=== PATIENT | male | born 1950 | race Caucasian/White ===

== ENCOUNTER 2019-02-01 07:26 | Inpatient (IN) | payer OTHER ==
[2019-01-28 13:16] LABS: HEMATOCRIT 45.8 % (42.0-52.0); HEMOGLOBIN 15.1 gm/dL (14.0-18.0); MCH 30.4 pg (26.0-34.0); MCHC 32.9 g/dL (28.0-37.0); MCV 92.4 fL (80.0-100.0); RBC 4.96 mil/uL (4.50-6.00); RDW 14.9 % (10.5-14.5); WBC 11.5 thou/uL (4.0-11.0)
[2019-01-28 13:28] LABS: ALBUMIN 3.6 g/dL (3.4-5.0); CREATININE 0.9 mg/dL (0.7-1.3); POTASSIUM 4.1 mmol/L (3.5-5.1); PROTIME 9.9 Seconds (9.3-11.4)
[2019-01-28 14:22] LABS: URINE BILIRUBIN NEGATIVE (Negative); URINE BLOOD NEGATIVE (Negative); URINE CLARITY CLEAR; URINE COLOR YELLOW; URINE GLUCOSE-RANDOM* NEGATIVE (Negative); URINE KETONES NEGATIVE (Negative); URINE LEUKOCYTES-REFLEX NEGATIVE (Negative); URINE NITRITE-REFLEX NEGATIVE (Negative); URINE PROTEIN (DIPSTICK) NEGATIVE (Negative); URINE UROBILINOGEN 0.2 E.U./dl (0.2-1.0)
--- NOTE | 2019-01-29 07:53 | EKG ---
[address] [place] [address] ELECTROCARDIOGRAM REPORT Name: MELISSATRESSA Armendariz Room #: [facility]#: [id number] Admission: Attend Phys: Efra Godfrey MD Discharge: Date of : 50 Report #: [id number] THIS REPORT FOR: //name// [facility] Test Date: 2019-01-28 Test Time: 13:09:13 Pat Name: TRESSA TORRES Department: Room: Gender: Web Knitter: Marcello PIERCE : 1950 Requested By: Efra Godfrey Order Number: [id number] MD: Jorge Riggs Measurements Intervals Edwards Rate: 85 P: 58 UT: 151 QRS: 38 QRSD: 147 T: 16 QT: 382 QTc: 455 Interpretive Statements Sinus rhythm Right bundle branch block No previous ECG available for comparison Electronically Signed On 01-29-2019 7:53:16 PRE SALES ARCHITECT by Jorge Riggs [email or web address] <ELECTRONICALLY SIGNED> By: Jorge Riggs MD, [facility] 01/29/19 0753 [id number] 1309 Jorge Riggs MD, FACC /EPI
[~2019-02-01] VITALS: Ht 182.9 cm; Wt 99.8 kg
[2019-02-01 08:40] VITALS: BP 143/88
[2019-02-01 13:10] VITALS: BP 135/81
[2019-02-01 13:54] VITALS: BP 135/81
--- NOTE | 2019-02-01 14:40 | NUR ---
PT ADMITTED RELATED TO RT TOTAL KNEE REPLACEMENT. CM REVIEWED CHART AND SPOKE WITH CARE TEAM. CM MET WITH PT AT BEDSIDE THIS DAY. PT IS A&O X4. CM ROLE INTRODUCED. PT INDICATED HE LIVES IN A HOUSE WITH HIS SPOUSE WITH 3 STEPS TO ENTER AND NO STEPS INSIDE. PT INDICATED HE HAD BEEN INDEPENDENET WITH GAIT AND ADLS RN PRIMARY CARE. HE INDICATED NO DME HX. PT WILL NEED A FWW ISSUED UPON DC. CM NOTIFIED PROVIDER PLUS LIAISON. PT IS SET UP WITH OP PT APPOINTMENT AT [facility] FOR THIS FRIDAY. CM TO FOLLOW SHOULD ANY OTHER DC NEEDS ARISE.
--- NOTE | 2019-02-01 18:34 | NUR ---
PT ARRIVED ON UNIT AT 1310 ACCOMPANIED BY ALERT XS 4. ATE 100%LUNCH AND 100%DINNER. IV FLUIDS AND IV ABT INFUSING ORDERED. HAS [employer] DRESSING AND [facility] PAC
[2019-02-01 19:44] VITALS: BP 125/76
--- NOTE | 2019-02-01 23:36 | NUR ---
ASSUMED PT CARE AT 1900. PT DENIES PAIN. DRESSING IS DRY AND INTACT. TOLERATING A REGULAR DIET. FLUIDS RUNNING, ANTIBIOTICS ALSO BEING GIVEN. LOOKNG FORWARD TO DISCHARGE TOMORROW.
[2019-02-02 04:39] VITALS: BP 128/72
[2019-02-02 05:30] LABS: HEMOGLOBIN 12.6 gm/dL (14.0-18.0); MCH 30.4 pg (26.0-34.0); MCHC 32.3 g/dL (28.0-37.0); RBC 4.15 mil/uL (4.50-6.00); RDW 15.5 % (10.5-14.5); WBC 15.7 thou/uL (4.0-11.0)
--- NOTE | 2019-02-02 10:05 | NUR ---
ASSUMED CARE OF THE PT AT 0700. PT IS ABLE TO AMBULATE WITHOUT PAIN OR SOA. YASMEEN DRESSING, POLAR PACK, SCDS AND KNEE HIGH JUAN CARLOS HOSE ARE IN PLACE. WOUND DRESSING IS DRY AND INTACT. L HAND IV IS DRY AND INTACT. LUNGS ARE CLEAR. PT HAS SOME TACHYCARDIA THIS AM UPON ASSESSMENT THAT SUBSIDED, PT C/O PAIN IN THE NECK THAT RADIATES TO THE SHOULDER. PT REFUSED FLU SHOT. FALL PRECAUTIONS ARE IN PLACE, BED IN LOWEST POSITION AND CALL LIGHT IS WITHIN REACH. WILL CONTINUE TO MONITOR THE PT.
[2019-02-02] MEDS ORDERED: ASPIR 8181 MG PO (11:06)
[2019-02-02] MEDS ORDERED: NEURONTIN 300300 M1 PO (11:06)
[2019-02-02 12:42] VITALS: BP 128/72
--- NOTE | 2019-02-03 14:33 | O ---
[facility] [place] [address] OPERATIVE REPORT Name: TRESSA TORRES Room #: 444-P [facility] IN M.R.#: [id number] Admission: 02/01/19 Attend Phys: Efra Godfrey MD Discharge: 02/02/19 Date of : 50 Report #: [id number] THIS REPORT FOR: //name// CC: Physician staff AN Godfrey DATE OF SERVICE: 02/01/2019 PREOPERATIVE DIAGNOSIS: Right knee osteoarthritis. POSTOPERATIVE DIAGNOSIS: Right knee osteoarthritis. PROCEDURE: Right total knee arthroplasty using Navio robotic assistance. SURGEON: Efra Godfrey MD. BUSINESS APPLICATIONS SPECIALIST: Christina Aleman PA-C. INDICATIONS FOR BUSINESS APPLICATIONS SPECIALIST: Throughout the case, extensive retraction and manipulation of the knee was required. This was afforded to me by my office assistant receptionist. ANESTHESIA: General with an adductor canal block. IMPLANTS: [employer] size 7 Legion cobalt chrome posterior stabilized femur, a size 6 tibia, size 9 constrained polyethylene and size 38 patella. TOURNIQUET TIME: 61 minutes. ESTIMATED BLOOD LOSS: 25 mL. COMPLICATIONS: None. SPECIMENS: None. CONDITION UPON LEAVING THE OPERATING ROOM: Stable. INDICATIONS FOR PROCEDURE: The patient is a 68-year-old gentleman with severe right knee osteoarthritis, primarily of the medial compartment. He had failed conservative measures for this and after discussion with him, he elected for right total knee arthroplasty. DESCRIPTION OF PROCEDURE: Risks, benefits, alternatives, complications were discussed in detail with the patient including but not limited to risk of anesthesia, risk of damage to nerves, arteries, blood vessels, risk for infection, bleeding, risk for continued knee pain, need for reoperation. [facility] [address] [place] [address] OPERATIVE REPORT Name: TRESSA TORRES Room #: 444-P [facility] IN .R.#: [id number] Admission: 02/01/19 Attend Phys: Efra Godfrey MD Discharge: 02/02/19 Date of : 50 Report #: [id number] Informed consent was obtained from the patient. Right knee was appropriately marked in the preoperative holding area. Adductor canal block was placed by anesthesia. IV Ancef was given for preoperative antibiotics. He was brought to the operating room and placed in supine position on operating room table. LMA anesthesia was induced without complication. Tourniquet was placed on the right thigh. Right lower extremity was prepped and draped in normal sterile fashion. Timeout was performed properly identifying the patient and procedure as well as the instrumentation and implants. All in the operating room were in agreement. Right lower extremity was exsanguinated, tourniquet was inflated. Tourniquet time was 61 minutes. Standard midline approach to knee was made with 10 blade through the skin. Dissection was taken down sharply to the fascia and deep flaps were developed medially and laterally. Fresh 10 blade was used to make a medial parapatellar arthrotomy and the knee was inspected. There was severe medial compartment osteoarthritis with moderate lateral and patellofemoral involvement. Reference pins were placed in the femur and the tibia. The knee was then digitally mapped using the Soundwave robotic system. Intraoperative plan was made and we sized the size 7 femur with a size 6 tibia and a size 11 spacer. After acceptance of the intraoperative plan, the distal femoral cut was made with a Navio bur. The distal femoral cutting block was pinned in place and the distal femoral cuts were made. Attention was then turned to the tibia. The remainder of the menisci removed with Bovie cautery. The tibial resection guide was pinned in place using the Navio for placement and the tibial resection was made. After this, flexion and extension gaps were checked and found to be tight medially in flexion and extension. A limited medial release was then performed using the pie crust technique. This balanced the knee well. Tibia was sized, found to be a size 6. A size 6 tibial trial was placed, pinned and punched. A size 7 femoral trial was placed and the box cut was made. This was then trialed with size 9 polyethylene. Knee was taken through range of motion, found to have 1 mm laxity medially but 4 mm laterally throughout range of motion. It was felt we could make up for this with a constrained implant. A 9 mm was resected from the posterior surface of the patella and a size 38 patellar trial button was placed. Knee was taken through range of motion, found to be stable, found to have good patellar tracking. After this, trial components were removed. Bony ends were thoroughly irrigated with normal saline. A final size 6 tibia, size 7 Legion cobalt chrome posterior stabilized femur and a size 38 patella were cemented in place using standard cementation techniques. While the cement cured, a periarticular injection consisting of morphine, ropivacaine, epinephrine and Toradol was placed around the knee joint capsule. After the cement cured, tourniquet was deflated. Hemostasis was obtained with Bovie cautery. Final size 9 constrained polyethylene was placed. A gram of vancomycin was placed deep in the joint. The fascia was closed with 0 Vicryl, skin was closed with 2-0 Vicryl, 3-0 Monocryl. Dermabond and a YASMEEN dressing [address] [address] OPERATIVE REPORT Name: TRESSA TORRES Room #: 444-P [facility] IN M.R.#: [id number] Admission: 02/01/19 Attend Phys: Efra Godfrey MD Discharge: 02/02/19 Date of : 50 Report #: [id number] was applied. The patient tolerated this procedure well and went to recovery room under care of anesthesia postoperatively. <ELECTRONICALLY SIGNED> By: Efra Godfrey MD 02/03/19 1433 [id number] 1833 Efra Godfrey MD /nt
== END 2019-02-02 13:00 | disposition home or self-care (01) | DRG 470 ==
LOC: 4S 07:26 → TBA 07:26 → PRE 11:54 → 4S 13:27 → PRE 19:48 → 4S 02-02 13:00 → ENTRNSPT 02-02 13:03 → EDTRNSPTSTS 02-02 13:05
PROVIDERS: ADMIT Orthopaedic Surgery
DX: M17.11 Unilateral primary osteoarthritis, right knee (principal); Z79.82 Long term (current) use of aspirin; Z79.899 Other long term (current) drug therapy; Z88.8 Allergy status to other drugs, medicaments and biological substances; Z28.21 Immunization not carried out because of patient refusal
CPT/HCPCS: 10102; 50010; 50101; 50415; 50954; 51130; 51225; 51320; 52001; 52282; 53000; 53078; 53364; 54118; 56527; 56528; 57095; 57103; 57110; 57127; 57180; 62110; 62900; 64039; 65060; 70005